=== PATIENT | male | born 1970 | race Caucasian/White ===

== ENCOUNTER 2021-10-07 13:54 | Observation (INO) | payer SELFPAY ==
[2021-10-07] MEDS ORDERED: Ondansetron PF 4 MG/2 ML Vial IVP PRN (15:27)
[2021-10-07] MEDS ORDERED: Acetaminophen 325 MG TAB PO PRN (15:27)
[2021-10-07] MEDS ORDERED: Morphine 4 MG/ML VIAL ONE (16:19)
[2021-10-07] MEDS ORDERED: Ondansetron PF 4 MG/2 ML Vial ONE (16:20)
[2021-10-07 18:20] VITALS: BMI 16.7
[2021-10-07] MEDS: Morphine 4 MG/ML VIAL SLOW IVP PRN ×2 (18:30→22:55)
[2021-10-07] MEDS: D5 1/2 NS 1,000 ML IV SCH (18:31)
[2021-10-07] MEDS ORDERED: traMADol HCl 50 MG TAB PO SCH (21:15)
[2021-10-08] MEDS: Morphine 4 MG/ML VIAL SLOW IVP PRN ×2 (03:16→12:51)
[2021-10-08] MEDS: D5 1/2 NS 1,000 ML IV SCH (05:45)
[2021-10-08] MEDS ORDERED: Midazolam HCl 2 mg/2 ml Vial ONE (07:47)
[2021-10-08] MEDS ORDERED: EPINEPHrine 1 MG/ML AMP ONE (07:47)
[2021-10-08] MEDS ORDERED: Fentanyl 100 MCG/2 ML VIAL ONE ×3 (07:47→09:09)
[2021-10-08] MEDS ORDERED: PROPOFOL 20 ML ONE (07:47)
[2021-10-08] MEDS ORDERED: Ondansetron PF 4 MG/2 ML Vial ONE (07:48)
[2021-10-08] MEDS ORDERED: Lidocaine 1% PF 5 ML VIAL ONE ×2 (07:48)
[2021-10-08] MEDS ORDERED: Dexamethasone 20 MG/5 ML VIAL ONE (07:48)
[2021-10-08] MEDS ORDERED: SUGAMMADEX SODIUM 200 MG/2 ML VIAL ONE (07:50)
[2021-10-08 10:11] VITALS: BP 137/71; TEMP 97.8
== END 2021-10-08 13:36 | disposition home or self-care (01) ==
LOC: CSHERS 13:54 → CSHTELE 15:27 → INTOOBSV 15:27 → UNDOADMIN 17:52 → CSHTELE 17:52
PROVIDERS: ADMIT Otolaryngology Plastic Surgery within the Head & Neck; ATTEND Otolaryngology Plastic Surgery within the Head & Neck
PROC: 0CBM8ZX Excision of Pharynx, Via Natural or Artificial Opening Endoscopic, Diagnostic (ICD-10-PCS; principal; 2021-10-08)
DX: C02.1 Malignant neoplasm of border of tongue (principal); G89.29 Other chronic pain; M54.9 Dorsalgia, unspecified; F12.10 Cannabis abuse, uncomplicated; Z87.891 Personal history of nicotine dependence; Z20.822 Contact with and (suspected) exposure to COVID-19
CPT/HCPCS: 87624; 88305; 88331; 96374; 96375; 96376; G0378; J0171; J1100; J2250; J2270; J2405; J2704; J3010; J7042; U0003; U0005

== ENCOUNTER 2021-10-10 19:57 | Inpatient (IN) | payer SELFPAY ==
[2021-10-10 23:17] LABS: #Basophils 0.1 10x3/uL (0.0-0.2); #Eosinphils 0.1 10x3/uL (0.0-0.5); #Neutrophils 8.9 10x3/uL (1.5-8.4); %Basophils 0.5 % (0.0-2.0); %Eosinophils 0.7 % (0.0-6.0); %Lymphocytes 19.2 % (18.0-47.0); %Monocytes 7.9 % (0.0-10.0); %Neutrophils 71.1 % (40.0-75.0); Hemoglobin 14.4 g/dL (13.5-17.5); Mean Corpuscular Hemoglobin 30.6 pg (27.0-33.0); Mean Corpuscular Volume 90.2 fl (81.2-95.1); Mean Platelet Volume 9.4 fl (7.4-10.4); Platelet Count 269 10x3/uL (150-450); White Blood Cell (WBC) Count 12.5 10x3/uL (3.5-10.5)
[2021-10-10] MEDS ORDERED: Morphine 4 MG/ML VIAL ONE (23:24)
[2021-10-10] MEDS ORDERED: Ketorolac Tromethamine 30 MG/ML VIAL ONE (23:24)
[2021-10-10 23:31] LABS: ALT (SGPT) 37 U/L (8-55); AST (SGOT) 28 U/L (5-34); Alkaline Phosphatase 77 U/L (40-110); Anion Gap 17 mmol/L (10-20); BUN (Urea Nitrogen) 26 mg/dL (8.4-25.7); Bilirubin, Total 0.8 mg/dL (0.2-1.2); Calc. Creatinine Clearance 0 mL/min (70-130); Calcium 11.3 mg/dL (7.8-10.44); Carbon Dioxide 28 mmol/L (22-29); Chloride 99 mmol/L (98-107); Globulin 3.6 g/dL (2.4-3.5); Glucose 101 mg/dL (70-105); Protein, Total 8.6 g/dL (6.0-8.3); Sodium 140 mmol/L (136-145)
[2021-10-10] MEDS ORDERED: Ondansetron PF 4 MG/2 ML Vial ONE (23:37)
[2021-10-10] MEDS ORDERED: Metoclopramide HCl 10 MG/2 ML VIAL IVP SCH (23:45)
[2021-10-10] MEDS ORDERED: Nystatin 500,000 UNITS/5 ML UDCUP SSW SCH (23:45)
[2021-10-11] MEDS ORDERED: Fluconazole In NaCl,Iso-Osm 200 MG in Premix Bag 1 BAG IVPB SCH (00:45)
[2021-10-11] MEDS ORDERED: Bisacodyl 10 MG SUPP PR PRN (00:48)
[2021-10-11] MEDS ORDERED: Ondansetron PF 4 MG/2 ML Vial IVP PRN (00:48)
[2021-10-11] MEDS ORDERED: Acetaminophen 650 MG Suppository PR PRN (00:48)
[2021-10-11] MEDS ORDERED: Lidocaine Viscous Sol 2% 15 ml UD Cup SSW PRN (00:53)
[2021-10-11 01:44] VITALS: BMI 16.7
[2021-10-11] MEDS ORDERED: Dextrose 5 %-0.45 % NaCl 1,000 ML ONE (01:51)
[2021-10-11] MEDS ORDERED: Thiamine HCl 200 MG/2 ML VIAL IVPB SCH (02:00)
[2021-10-11] MEDS ORDERED: Multivitamins, Adult 10 ML, Folic Acid 1 MG in Dextrose 5 %-0.45 % NaCl 1,000 ML IV SCH (02:00)
[2021-10-11] MEDS ORDERED: Thiamine HCl 200 MG/2 ML VIAL SLOW IVP SCH (02:00)
[2021-10-11] MEDS: Dextrose 5%-Lactated Ringers 1,000 ML IV SCH ×2 (02:09→10:21)
[2021-10-11] MEDS: Morphine 2 MG/ML VIAL SLOW IVP PRN ×3 (02:21→12:44)
[2021-10-11 04:46] LABS: #Basophils 0.1 10x3/uL (0.0-0.2); #Eosinphils 0.1 10x3/uL (0.0-0.5); #Monocytes 0.8 10x3/uL (0.0-1.1); #Neutrophils 6.9 10x3/uL (1.5-8.4); %Basophils 0.5 % (0.0-2.0); %Eosinophils 0.9 % (0.0-6.0); %Lymphocytes 22.9 % (18.0-47.0); %Monocytes 7.9 % (0.0-10.0); %Neutrophils 67.1 % (40.0-75.0); Hemoglobin 11.4 g/dL (13.5-17.5); Mean Corpuscular HGB CONC 34.2 g/dL (32.0-36.0); Mean Corpuscular Hemoglobin 30.8 pg (27.0-33.0); Mean Platelet Volume 9.7 fl (7.4-10.4); Platelet Count 209 10x3/uL (150-450); RBC Distribution Width 13.2 % (11.5-14.5); White Blood Cell (WBC) Count 10.3 10x3/uL (3.5-10.5)
[2021-10-11 05:41] LABS: Anion Gap 11 mmol/L (10-20); BUN (Urea Nitrogen) 28 mg/dL (8.4-25.7); Calc. Creatinine Clearance 92 mL/min (70-130); Calcium 9.3 mg/dL (7.8-10.44); Carbon Dioxide 29 mmol/L (22-29); Chloride 104 mmol/L (98-107); Glucose 120 mg/dL (70-105); Magnesium 1.9 mg/dL (1.6-2.6); Phosphorus 3.9 mg/dL (2.3-4.7); Potassium 3.8 mmol/L (3.5-5.1); Sodium 140 mmol/L (136-145)
[2021-10-11] MEDS ORDERED: Enoxaparin Sodium 40 MG/0.4 ML SYRINGE SC SCH (09:00)
[2021-10-11] MEDS: Famotidine/PF 20 mg/2ml Vial SLOW IVP SCH ×2 (10:21→16:19)
[2021-10-11] MEDS ORDERED: Iopamidol 300 61% 100 ML VIAL FS ONE (11:02)
[2021-10-11 11:23] LABS: SARS-CoV-2 NAA Rapid Test Not Detected (NotDetected)
[2021-10-11] MEDS ORDERED: diphenhydrAMINE 50 MG/ML VIAL IVP PRN (12:39)
[2021-10-11] MEDS ORDERED: Famotidine/PF 20 mg/2ml Vial SLOW IVP PRN (12:43)
[2021-10-11] MEDS: methylPREDNISolone Sod Succ 40 MG VIAL IVP SCH ×2 (13:10→17:32)
[2021-10-11] MEDS ORDERED: Morphine 2 MG/ML VIAL SLOW IVP PRN (13:28)
[2021-10-11] MEDS ORDERED: Morphine 10 MG/0.5 ML ORAL SYRINGE SL PRN (13:31)
[2021-10-11 18:09] LABS: Bilirubin Neg (Negative); Blood, Urine Negative (Negative); Clarity Clear (Clear); Glucose, Urine (Dipstick) Normal (Negative); Ketone, Urine Negative (Negative); Leukocyte Negative (Negative); Nitrite Negative (Negative); Protein, Urine (Dipstick) Negative (Neg-Trace); Urobilinogen Normal mg/dL (Less than 2)
[2021-10-11 18:34] LABS: Bacteria/HPF 2+ HPF (None Seen); RBC/HPF 0-3 HPF (0-3); Squamous Epithelial 0-3 HPF (0-3); WBC/HPF 0-3 HPF (0-3)
[2021-10-11 20:45] VITALS: BP 126/64; TEMP 98.3
[2021-10-11] MEDS ORDERED: ADMIXTURE FEE IVPB SCH (21:00)
[2021-10-11] MEDS ORDERED: NACL ISO OSM IVPB SCH (21:00)
[2021-10-11] MEDS ORDERED: FLUCONAZOLE IVPB SCH (21:00)
== END 2021-10-11 20:15 | disposition home or self-care (01) | DRG 640 ==
LOC: CSHERS 19:57 → CSHTELE 10-11 01:37
PROVIDERS: ADMIT Student in an Organized Health Care Education/Training Program; ATTEND Hospitalist
DX: R62.7 Adult failure to thrive (principal); E43 Unspecified severe protein-calorie malnutrition; B37.0 Candidal stomatitis; Z68.1 Body mass index [BMI] 19.9 or less, adult; R64 Cachexia; R13.10 Dysphagia, unspecified; C02.9 Malignant neoplasm of tongue, unspecified; N19 Unspecified kidney failure; E83.52 Hypercalcemia; E86.0 Dehydration; G89.29 Other chronic pain; R51.9 Headache, unspecified; M54.9 Dorsalgia, unspecified; Z20.822 Contact with and (suspected) exposure to COVID-19; Z79.899 Other long term (current) drug therapy; Z72.89 Other problems related to lifestyle; Z80.52 Family history of malignant neoplasm of bladder; Z87.891 Personal history of nicotine dependence
CPT/HCPCS: 36415; 71045; 71260; 74177; 80048; 80053; 81001; 83605; 83735; 84100; 85025; 93005; 96361; 96365; 96367; 96375; J1200; J1450; J1650; J1885; J2270; J2405; J2765; J2920; J3411; J7042; Q9967; S0028; U0002